=== PATIENT | female | born 1990 | race Caucasian/White ===

== ENCOUNTER 2017-02-12 16:48 | Emergency (ER) | payer MEDICAID | END 2017-02-12 19:06 | disposition home or self-care (01) | LOC: D.ER 16:48 | DX: K04.7 Periapical abscess without sinus (principal); K02.9 Dental caries, unspecified; R59.0 Localized enlarged lymph nodes; F17.200 Nicotine dependence, unspecified, uncomplicated ==

== ENCOUNTER 2017-12-18 20:18 | Emergency (ER) | payer MEDICARE ==
[2017-12-18 20:53] LABS: BASOPHILS 0.3 % (0-2); EOSINOPHILS 3.8 % (0-7); HEMATOCRIT 39.7 % (36.0-48.0); IMMATURE GRANULOCYTES 0.2 % (0-5); LYMPHOCYTES 22.2 % (15-50); MCH 29.6 pg (26.0-34.0); MCHC 32.7 g/dL (31.0-37.0); MCV 90.4 fL (80.0-100.0); MEAN PLATELET VOLUME 9.8 fL (7.4-10.4); MONOCYTES 5.9 % (2-11); NEUTROPHILS 67.6 % (40-80); PLATELET COUNT 304 10x3/uL (130-400); RBC 4.39 10x6/uL (4.00-5.40); RDW 13.4 % (11.5-14.5)
[2017-12-18 20:58] LABS: APPEARANCE HAZY (CLEAR); BILIRUBIN NEGATIVE (NEGATIVE); COLOR YELLOW (YELLOW); GLUCOSE NEGATIVE (NEGATIVE); KETONE NEGATIVE (NEGATIVE); NITRITE NEGATIVE (NEGATIVE); PROTEIN NEGATIVE (NEGATIVE); UROBILINOGEN NORMAL (NORMAL)
[2017-12-18 21:10] LABS: ALBUMIN 3.6 g/dL (3.4-5.0); ALKALINE PHOSPHATASE 45 U/L (46-116); ALT (SGPT) 24 U/L (10-68); BILIRUBIN - TOTAL 0.31 mg/dL (0.2-1.3); CALC OSMOLALITY 278 mosm/kg (275-300); CALCIUM 8.8 mg/dL (8.5-10.1); CARBON DIOXIDE 30.8 mmol/L (21.0-32.0); CHLORIDE - SERUM 101 mmol/L (98-107); CREATININE - SERUM 0.9 mg/dL (0.6-1.3); GLUCOSE 118 mg/dL (74-106); PROTEIN - SERUM 8.2 g/dL (6.4-8.2); SODIUM 139 mmol/L (136-145); UREA NITROGEN 12 mg/dL (7-18); eGFR NON AFRICAN AMERICAN 80 mL/min (90-120)
[2017-12-18 21:25] LABS: AMYLASE - SERUM 30 U/L (25-115); LIPASE 91 U/L (73-393)
[2017-12-18 21:36] LABS: HCG SERUM NEGATIVE (NEGATIVE)
== END 2017-12-18 22:45 | disposition home or self-care (01) ==
LOC: D.ER 20:18
PROVIDERS: Emergency Medicine; Nurse Practitioner Family
DX: R10.9 Unspecified abdominal pain (principal)

== ENCOUNTER → 2018-04-10 16:01 | Outpatient (CLI) | payer MEDICARE | END | disposition home or self-care (01) | LOC: D.RAD 16:01 | DX: M25.562 Pain in left knee (principal) ==

== ENCOUNTER 2018-08-18 18:37 | Emergency (ER) | payer MEDICARE ==
[~2018-08-18] VITALS: Ht 152.4 cm; Wt 170.5 kg
[2018-08-18 19:24] VITALS: Ht 152.4 cm; Wt 170.5 kg
[2018-08-18 20:18] LABS: BASOPHILS 0.4 % (0-2); EOSINOPHILS 6.9 % (0-7); HEMATOCRIT 40.3 % (36.0-48.0); HEMOGLOBIN 13.2 g/dL (12-16); IMMATURE GRANULOCYTES 0.3 % (0-5); LYMPHOCYTES 22.4 % (15-50); MCH 29.9 pg (26.0-34.0); MCHC 32.8 g/dL (31.0-37.0); MCV 91.4 fL (80.0-100.0); MEAN PLATELET VOLUME 9.8 fL (7.4-10.4); MONOCYTES 5.9 % (2-11); NEUTROPHILS 64.1 % (40-80); PLATELET COUNT 299 10x3/uL (130-400); RBC 4.41 10x6/uL (4.00-5.40); RDW 13.5 % (11.5-14.5); WBC 11.4 10x3/uL (4.8-10.8)
[2018-08-18 20:33] LABS: ALBUMIN 3.5 g/dL (3.4-5.0); ALKALINE PHOSPHATASE 44 U/L (46-116); ALT (SGPT) 24 U/L (10-68); AMYLASE - SERUM 28 U/L (25-115); BILIRUBIN - TOTAL 0.32 mg/dL (0.2-1.3); CALC OSMOLALITY 276 mosm/kg (275-300); CALCIUM 8.6 mg/dL (8.5-10.1); CARBON DIOXIDE 30.7 mmol/L (21.0-32.0); CHLORIDE - SERUM 101 mmol/L (98-107); CREATININE - SERUM 0.9 mg/dL (0.6-1.3); GLUCOSE 109 mg/dL (74-106); LIPASE 115 U/L (73-393); POTASSIUM - SERUM 4.3 mmol/L (3.5-5.1); PROTEIN - SERUM 8.2 g/dL (6.4-8.2); SODIUM 138 mmol/L (136-145); UREA NITROGEN 12 mg/dL (7-18); eGFR NON AFRICAN AMERICAN 80 mL/min (90-120)
[2018-08-18] MEDS ORDERED: TORADOL10 MG PO (23:42)
[2018-08-19 00:18] VITALS: BP 159/84
== END 2018-08-19 00:18 | disposition home or self-care (01) ==
LOC: D.ER 18:37
PROVIDERS: Family Medicine
DX: R07.89 Other chest pain (principal)

== ENCOUNTER 2018-09-22 13:22 | Emergency (ER) | payer MEDICARE ==
[~2018-09-22] VITALS: Ht 152.4 cm; Wt 172.7 kg
[~2018-09-22 13:22] MED LIST: TORADOL10 MG PO
[2018-09-22 13:26] VITALS: Ht 152.4 cm; Wt 172.7 kg
[2018-09-22] MEDS ORDERED: LISINOPRIL-HCT1 EAC7 PO (13:28)
[2018-09-22 13:58] LABS: BASOPHILS 0.2 % (0-2); EOSINOPHILS 3.7 % (0-7); HEMATOCRIT 41.8 % (36.0-48.0); HEMOGLOBIN 13.9 g/dL (12-16); IMMATURE GRANULOCYTES 0.4 % (0-5); LYMPHOCYTES 20.6 % (15-50); MCH 30.1 pg (26.0-34.0); MCHC 33.3 g/dL (31.0-37.0); MCV 90.5 fL (80.0-100.0); MEAN PLATELET VOLUME 9.8 fL (7.4-10.4); MONOCYTES 5.1 % (2-11); PLATELET COUNT 326 10x3/uL (130-400); RBC 4.62 10x6/uL (4.00-5.40); RDW 13.6 % (11.5-14.5); WBC 12.8 10x3/uL (4.8-10.8)
[2018-09-22 14:20] LABS: ALBUMIN 3.7 g/dL (3.4-5.0); ALKALINE PHOSPHATASE 50 U/L (46-116); ALT (SGPT) 20 U/L (10-68); BILIRUBIN - TOTAL 0.51 mg/dL (0.2-1.3); CALC OSMOLALITY 278 mosm/kg (275-300); CALCIUM 8.7 mg/dL (8.5-10.1); CARBON DIOXIDE 26.9 mmol/L (21.0-32.0); CHLORIDE - SERUM 102 mmol/L (98-107); CREATININE - SERUM 0.7 mg/dL (0.6-1.3); GLUCOSE 112 mg/dL (74-106); POTASSIUM - SERUM 4.2 mmol/L (3.5-5.1); PROTEIN - SERUM 8.6 g/dL (6.4-8.2); SODIUM 139 mmol/L (136-145); UREA NITROGEN 12 mg/dL (7-18); eGFR NON AFRICAN AMERICAN > 90 mL/min (90-120)
[2018-09-22 14:26] LABS: PRO BNP 56 pg/mL (0-125)
[2018-09-22 16:20] LABS: PRO BNP 53 pg/mL (0-125)
[2018-09-22 16:29] LABS: TROPONIN-I < 0.017 ng/mL (0.000-0.060)
[2018-09-22] MEDS ORDERED: ALBUTEROL SULF8.5 GM INH (18:37)
[2018-09-22 19:20] VITALS: BP 176/102
== END 2018-09-22 19:20 | disposition home or self-care (01) ==
LOC: D.ER 13:22
PROVIDERS: Family Medicine
DX: J40 Bronchitis, not specified as acute or chronic (principal); R09.89 Other specified symptoms and signs involving the circulatory and respiratory systems; I10 Essential (primary) hypertension

== ENCOUNTER 2018-10-02 13:09 | Emergency (ER) | payer MEDICARE, MEDICAID ==
[~2018-10-02] VITALS: Ht 152.4 cm; Wt 172.7 kg
[~2018-10-02 13:09] MED LIST changes: +ALBUTEROL SULF8.5 GM INH; +LISINOPRIL-HCT1 EAC7 PO
[2018-10-02 13:14] VITALS: BP 160/85; Ht 152.4 cm; Wt 172.7 kg
[2018-10-02] MEDS ORDERED: OMEPRAZOLE40 MG PO (15:41)
== END 2018-10-02 15:51 | disposition home or self-care (01) ==
LOC: D.ER 13:09
DX: J02.9 Acute pharyngitis, unspecified (principal); K21.9 Gastro-esophageal reflux disease without esophagitis

== ENCOUNTER 2019-04-16 14:22 | Emergency (ER) | payer MEDICARE, MEDICAID ==
[~2019-04-16] VITALS: Ht 152.4 cm; Wt 178.2 kg
[~2019-04-16 14:22] MED LIST changes: +OMEPRAZOLE40 MG PO
[2019-04-16 14:33] VITALS: Ht 152.4 cm; Wt 178.2 kg
[2019-04-16 15:03] LABS: BASOPHILS 0.3 % (0-2); EOSINOPHILS 2.5 % (0-7); HEMATOCRIT 40.5 % (36.0-48.0); HEMOGLOBIN 13.5 g/dL (12-16); IMMATURE GRANULOCYTES 0.2 % (0-5); MCH 29.2 pg (26.0-34.0); MCHC 33.3 g/dL (31.0-37.0); MCV 87.7 fL (80.0-100.0); MONOCYTES 5.4 % (2-11); NEUTROPHILS 70.6 % (40-80); PLATELET COUNT 275 10x3/uL (130-400); RBC 4.62 10x6/uL (4.00-5.40); RDW 14.4 % (11.5-14.5); WBC 11.8 10x3/uL (4.8-10.8)
[2019-04-16 15:27] LABS: ALBUMIN 3.7 g/dL (3.4-5.0); ALKALINE PHOSPHATASE 54 U/L (46-116); ALT (SGPT) 21 U/L (10-68); BILIRUBIN - TOTAL 0.45 mg/dL (0.2-1.3); CALC OSMOLALITY 280 mosm/kg (275-300); CALCIUM 8.8 mg/dL (8.5-10.1); CARBON DIOXIDE 34.9 mmol/L (21.0-32.0); CHLORIDE - SERUM 102 mmol/L (98-107); CREATININE - SERUM 0.8 mg/dL (0.6-1.3); GLUCOSE 105 mg/dL (74-106); POTASSIUM - SERUM 5.3 mmol/L (3.5-5.1); SODIUM 140 mmol/L (136-145); UREA NITROGEN 18 mg/dL (7-18); eGFR NON AFRICAN AMERICAN 90 mL/min (90-120)
[2019-04-16 15:32] LABS: AMYLASE - SERUM 35 U/L (25-115); LIPASE 182 U/L (73-393)
[2019-04-16 15:38] LABS: TROPONIN-I < 0.017 ng/mL (0.000-0.060)
[2019-04-16 15:48] LABS: APPEARANCE HAZY (CLEAR); BILIRUBIN NEGATIVE (NEGATIVE); COLOR YELLOW (YELLOW); GLUCOSE NEGATIVE (NEGATIVE); KETONE NEGATIVE (NEGATIVE); NITRITE NEGATIVE (NEGATIVE); PROTEIN TRACE mg/dL (NEGATIVE); SPECIFIC GRAVITY 1.005 (1.005-1.020); UROBILINOGEN NORMAL (NORMAL)
[2019-04-16 15:49] LABS: BACTERIA MODERATE /hpf (NONE SEEN); EPITHELIAL CELLS 0-5 /hpf (0-5); RED CELLS - URINE 25-50 /hpf (0-5)
[2019-04-16 18:00] LABS: HCG SERUM NEGATIVE (NEGATIVE)
[2019-04-16] MEDS ORDERED: TORADOL10 MG PO (20:38)
[2019-04-16] MEDS ORDERED: MACROBID100 MG PO (20:38)
[2019-04-16 20:53] VITALS: BP 132/89
== END 2019-04-16 20:53 | disposition home or self-care (01) ==
LOC: D.ER 14:22
PROVIDERS: Family Medicine
DX: R10.9 Unspecified abdominal pain (principal); I10 Essential (primary) hypertension

== ENCOUNTER 2019-10-02 14:10 | Inpatient (IN) | payer MEDICARE, MEDICAID ==
[~2019-10-02] VITALS: Ht 152.4 cm; Wt 182.3 kg
[2019-10-02] VITALS (9 sets, daily range): BP systolic 130–229; BP diastolic 86–118; BMI 78.4
--- NOTE | ~2019-10-02 | EC ---
PATIENT:DARWIN MARCOS DATE OF SERVICE: 10/02/19 SEX: F MEDICAL RECORD: [id number] DATE OF : [birth year] LOCATION:D.M2 D.211 AGE OF PATIENT: 29 ADMISSION DATE: 10/02/19 REFERRING PHYSICIAN: INTERPRETING PHYSICIAN: NASIR CURRAN MD ECHOCARDIOGRAM REPORT ECHO CHARGES 5 ECHO LIMITED Date: 10/03/19 CLINICAL DIAGNOSIS: SOBJ/CHEST PAIN, DVT, HX OF PULMONARY HTN ECHOCARDIOGRAPHIC MEASUREMENTS (adult normal given) AC root (d.<3.7cm) 3.2 cm LV Septum d (<1.2 cm> 1.7 cm Valve Excursion 1.7 cm LV Septum (systole) 1.9 cm Left Atria (s.<4.0cm> cm LVPW d(<1.2cm) 2.0 cm RV (d.<2.3cm) cm LVPW (sytole) 2.1 cm LV diastole(<5.6CM) 5.7 cm MV E-F(>70mm/sec) cm LV systole 4.2 cm LVOT Diameter cm MV exc.(>10mm) cm Est.ejection fraction (50-75%) % DOPPLER: LVIT cm/sec A cm/sec E cm/sec LA cm/sec RVSP mmHg LVOT cm/sec AOP1/2T m/s Asc. Ao cm/sec RVOT cm/sec RA cm/sec PA cm/sec AV Gradient Peak mmHg AV Mean mmHg AV Area cm MV Gradient Peak mmHg MV Mean mmHg MV Area cm COMMENTS: Pet Food Deboner: Jeff MAO Surface Mount Technology Operator: 1 Dr. Curran TAPE# PACS Pericardial Effusion N DATE OF SERVICE: FINDINGS: 1. Technically difficult study secondary to the patient's weight. 2. Left ventricular chamber size is within normal limits. Left ventricular systolic function is preserved at 55% to 60%. 3. Left atrium, right atrium, and right ventricular chamber sizes appear to be within normal limits. 4. Valvular structures have normal structure and motion. 5. Doppler interrogation is difficult due to patient's size, but there is no ECHOCARDIOGRAM REPORT [id number] ADRWIN MARCOS A significant valvular insufficiency or stenosis noted. 6. No evidence of pericardial effusion or left ventricular thrombus. TRANSINT:[id number] Voice Confirmation ID: [id number] DOCUMENT ID: [id number] NASIR CURRAN MD CC: [id number] DICTATION DATE: 10/04/19924 ORTHOTIC AIDE: 10/04/19933 ADM IN [facility] [address] [id number]
[~2019-10-02 14:10] MED LIST changes: +MACROBID100 MG PO
[2019-10-02] MEDS ORDERED: PROVENTIL/2.5 MG/3 M (14:24)
[2019-10-02] MEDS ORDERED: HYDROCHLOROTH12.5 M1 (14:24)
[2019-10-02] MEDS ORDERED: KLONOPIN1 MG PO (14:24)
[2019-10-02 14:45] LABS: BASOPHILS 0.2 % (0-2); EOSINOPHILS 2.1 % (0-7); HEMATOCRIT 40.4 % (36.0-48.0); HEMOGLOBIN 13.2 g/dL (12-16); IMMATURE GRANULOCYTES 0.3 % (0-5); LYMPHOCYTES 18.9 % (15-50); MCH 29.9 pg (26.0-34.0); MCHC 32.7 g/dL (31.0-37.0); MCV 91.6 fL (80.0-100.0); MEAN PLATELET VOLUME 9.3 fL (7.4-10.4); MONOCYTES 5.8 % (2-11); NEUTROPHILS 72.7 % (40-80); PLATELET COUNT 251 10x3/uL (130-400); RBC 4.41 10x6/uL (4.00-5.40); RDW 14.1 % (11.5-14.5); WBC 12.1 10x3/uL (4.8-10.8)
[2019-10-02 14:52] LABS: APTT 28.8 SECONDS (22.8-39.4); INR 1.06 (0.85-1.17); PROTIME 13.7 SECONDS (11.6-15.0)
[2019-10-02 14:53] LABS: D-DIMER-QUANTITATIVE 3.29 ug/mLFEU (0.20-0.54)
[2019-10-02 14:54] LABS: CALC OSMOLALITY 278 mosm/kg (275-300); CARBON DIOXIDE 30.9 mmol/L (21.0-32.0); CHLORIDE - SERUM 102 mmol/L (98-107); CREATININE - SERUM 0.9 mg/dL (0.6-1.3); GLUCOSE 116 mg/dL (74-106); POTASSIUM - SERUM 4.2 mmol/L (3.5-5.1); SODIUM 140 mmol/L (136-145); UREA NITROGEN 11 mg/dL (7-18); eGFR NON AFRICAN AMERICAN 79 mL/min (90-120)
[2019-10-02 15:09] LABS: ALBUMIN 3.5 g/dL (3.4-5.0); ALKALINE PHOSPHATASE 44 U/L (30-120); ALT (SGPT) 24 U/L (10-68); BILIRUBIN - TOTAL 0.32 mg/dL (0.2-1.3); CKMB 0.2 U/L (0.0-3.6); CREATINE KINASE 39 UL (21-215); MAGNESIUM - SERUM 1.9 mg/dL (1.8-2.4); PROTEIN - SERUM 7.6 g/dL (6.4-8.2)
[2019-10-02 15:12] LABS: TROPONIN-I < 0.017 ng/mL (0.000-0.060)
[2019-10-03] VITALS: BP 152/100
[2019-10-03 04:00] VITALS: BP 124/66
[2019-10-03 08:53] LABS: BASOPHILS 0.3 % (0-2); EOSINOPHILS 3.6 % (0-7); HEMATOCRIT 36.9 % (36.0-48.0); HEMOGLOBIN 11.6 g/dL (12-16); IMMATURE GRANULOCYTES 0.3 % (0-5); LYMPHOCYTES 30.2 % (15-50); MCH 29.1 pg (26.0-34.0); MCHC 31.4 g/dL (31.0-37.0); MCV 92.5 fL (80.0-100.0); MEAN PLATELET VOLUME 9.6 fL (7.4-10.4); NEUTROPHILS 57.6 % (40-80); PLATELET COUNT 266 10x3/uL (130-400); RBC 3.99 10x6/uL (4.00-5.40); RDW 14.5 % (11.5-14.5); WBC 9.7 10x3/uL (4.8-10.8)
[2019-10-03 09:00] VITALS: BP 112/61
[2019-10-03 09:15] LABS: ALBUMIN 3.1 g/dL (3.4-5.0); ALKALINE PHOSPHATASE 37 U/L (30-120); ALT (SGPT) 20 U/L (10-68); BILIRUBIN - TOTAL 0.39 mg/dL (0.2-1.3); CALC OSMOLALITY 274 mosm/kg (275-300); CALCIUM 8.5 mg/dL (8.5-10.1); CARBON DIOXIDE 30.7 mmol/L (21.0-32.0); CHLORIDE - SERUM 103 mmol/L (98-107); CREATININE - SERUM 0.8 mg/dL (0.6-1.3); GLUCOSE 98 mg/dL (74-106); PHOSPHOROUS 4.8 mg/dL (2.5-4.9); POTASSIUM - SERUM 3.9 mmol/L (3.5-5.1); PRO BNP 308 pg/mL (0-125); PROTEIN - SERUM 7.3 g/dL (6.4-8.2); SODIUM 138 mmol/L (136-145); THYROID STIMULATING HORMONE 6.88 uIU/mL (0.36-3.74); UREA NITROGEN 10 mg/dL (7-18); eGFR NON AFRICAN AMERICAN 90 mL/min (90-120)
[2019-10-03 12:00] VITALS: BP 134/88
[2019-10-03 21:17] VITALS: BP 135/70
[2019-10-04 00:31] VITALS: BP 127/77
[2019-10-04 04:40] VITALS: BP 141/74
[2019-10-04 06:13] LABS: ANION GAP 9.3 mmol/L (8-16); CALCIUM 8.5 mg/dL (8.5-10.1); CARBON DIOXIDE 31.7 mmol/L (21.0-32.0); PHOSPHOROUS 4.3 mg/dL (2.5-4.9)
[2019-10-04 07:15] LABS: BASOPHILS 0.5 % (0-2); EOSINOPHILS 2.9 % (0-7); HEMATOCRIT 39.7 % (36.0-48.0); HEMOGLOBIN 12.4 g/dL (12-16); IMMATURE GRANULOCYTES 0.6 % (0-5); LYMPHOCYTES 25.7 % (15-50); MCH 29.4 pg (26.0-34.0); MCHC 31.2 g/dL (31.0-37.0); MCV 94.1 fL (80.0-100.0); MEAN PLATELET VOLUME 9.6 fL (7.4-10.4); MONOCYTES 8.9 % (2-11); NEUTROPHILS 61.4 % (40-80); PLATELET COUNT 310 10x3/uL (130-400); RBC 4.22 10x6/uL (4.00-5.40); RDW 14.5 % (11.5-14.5)
[2019-10-04 08:04] VITALS: BP 140/81
[2019-10-04] MEDS ORDERED: ELIQUIS5 MG PO (11:40)
[2019-10-04 12:58] VITALS: Ht 152.4 cm; Wt 182.3 kg
[2019-10-04] MEDS ORDERED: ULTRAM50 MG PO (14:04)
--- NOTE | 2019-10-04 17:25 | MORECARE ---
CASE MANAGEMENT DISCHARGE SUMMARY PATIENT: DARWIN MARCOS UNIT: [id number] ADM DATE: 10/02/19 AGE: 29 : [birth year] SEX: F ROOM/BED: D.3976 AUTHOR: CAMACHO,DOC PHYSICIAN: REFERRING PHYSICIAN: ALISHA MO MD DATE OF SERVICE: 10/04/19 Discharge Plan Patient Name: DARWIN MARCOS Facility: [facility]:[place] : 1990 Planned Disposition: Home Anticipated Discharge Date: 10/04/19 Discharge Date: 10/04/2019 Expected LOS: 2 Initial Reviewer: [email or web address] Initial Review Date: 10/04/2019 Generated: 10/04/19 6:25 pm Comments DCP- Discharge Planning Updated by [email or web address]: Kalia Mccloud on 10/04/19 4:[address] Patient Name: DARWIN MARCOS Admission Status: ER Accout number: [id number] Admission Date: 10-02-2019 : 1990 Admission Diagnosis: Attending: MARIA R MO Current LOS: 2 Anticipated DC Date: 10-04-2019 Planned Disposition: Home Primary Insurance: [employer] ADV Discharge Planning Comments: CM MET WITH PT IN ROOM TO DISCUSS DISCHARGE PLANNING AND NEEDS. PT REPORTS LIVING AT HOME INDEPENDENTLY WITH HER FIANCE. PT HAS NO MEDICAL EQUIPMENT AND NO OUTSIDE SERVICES ASSISTING IN THE HOME. CM DISCUSSED AVAILABILITY OF HOME HEALTH, REHAB SERVICES AND MEDICAL EQUIPMENT. PT DENIES DISCHARGE NEEDS, REPORTS HER FIANCE WILL PICK HER UP FOR DISCHARGE HOME. [email or web address] COPAY CARDS PROVIDED. Animal Husbandry Worker: Kalia Mccloud DCPIA - Discharge Planning Initial Assessment Updated by [email or web address]: Kalia Mccloud on 10/04/19 5:21 pm * Is the patient Alert and Oriented? Yes * How many steps to enter\exit or inside your home? 4-O/2-I * PCP DR. LEON * Pharmacy [facility] * Preadmission Environment Home with Family * ADLs Independent * Equipment None * Other Equipment NO MEDICAL EQUIPMENT PROVIDER PREFERENCE * List name and contact numbers for known caregivers / representatives who currently or will assist patient after discharge: DARIA ACUÑA, MOTHER, * Verbal permission to speak to the caregivers and representatives has been obtained from the patient. N/A * Community resources currently utilized None * Please name any agencies selected above. NONE * Additional services required to return to the preadmission environment? No * Can the patient safely return to the preadmission environment? Yes * Has this patient been hospitalized within the prior 30 days at any hospital? No Patient Name: DARWIN MARCOS Page [phone] at 1725 All edits/amendments must be made on the electronic document DICTATION DATE: 10/04/191724 NANNY/HOUSEHOLD MANAGER: BRIAN 10/04/191724 RPT#: [id number] DC DATE:10/04/19 STATUS: DIS IN [facility] [address] [place] [address] END OF REPORT
[2019-10-05 12:09] LABS: ACLA - IGG AB <9 GPL U/mL (0-14); ACLA - IGM AB <9 MPL U/mL (0-12)
== END 2019-10-04 14:43 | disposition home or self-care (01) | DRG 300 ==
LOC: D.ER 14:10 → D.M2 20:20
PROVIDERS: Family Medicine; Internal Medicine Hematology & Oncology; ADMIT Emergency Medicine; ATTEND Emergency Medicine
DX: I82.402 Acute embolism and thrombosis of unspecified deep veins of left lower extremity (principal); Z68.45 Body mass index [BMI] 70 or greater, adult; E66.01 Morbid (severe) obesity due to excess calories; E03.9 Hypothyroidism, unspecified; M32.9 Systemic lupus erythematosus, unspecified; I11.0 Hypertensive heart disease with heart failure; I50.9 Heart failure, unspecified; K21.9 Gastro-esophageal reflux disease without esophagitis

== ENCOUNTER → 2020-01-17 14:29 | Outpatient (CLI) | payer MEDICARE, MEDICAID ==
[2019-10-04 12:58] VITALS: BMI 78.4
[~2020-01-17 14:29] MED LIST changes: +ELIQUIS5 MG PO; +HYDROCHLOROTH12.5 M1; +KLONOPIN1 MG PO; +PROVENTIL/2.5 MG/3 M; +ULTRAM50 MG PO
== END | disposition home or self-care (01) ==
LOC: D.US 14:29
PROVIDERS: ATTEND Internal Medicine Hematology & Oncology
DX: I82.492 Acute embolism and thrombosis of other specified deep vein of left lower extremity (principal)